=== PATIENT | female | born 1985 ===

== ENCOUNTER → 2017-06-13 | Outpatient (CLI) | payer OTHER | LOC: LAB SHORT 09:46 → LAB EV 09:46 | DX: J02.9 Acute pharyngitis, unspecified (principal) | CPT/HCPCS: 87070 ==

== ENCOUNTER → 2020-05-06 | Outpatient (CLI) | payer OTHER ==
[~2020-05-06] MED LIST: FLUO10 PO; GABA300 PO; MELA3 PO; TOPI100 PO
[2020-05-07 06:08] LABS: Candida species (DNA Probe) Positive (NEGATIVE); G. vaginalis (DNA Probe) Positive (NEGATIVE); T. vaginalis (DNA Probe) Negative (NEGATIVE)
== END | disposition home or self-care (01) ==
LOC: LAB EV 15:26 → LAB SHORT 15:26
PROVIDERS: Physician Assistant
DX: N89.8 Other specified noninflammatory disorders of vagina (principal)
CPT/HCPCS: 87480; 87510; 87660

== ENCOUNTER → 2024-08-21 | Outpatient (CLI) | payer OTHER | LOC: LAB SHORT 12:52 → LAB 12:52 | DX: N39.0 Urinary tract infection, site not specified (principal) | CPT/HCPCS: 87086 ==